=== PATIENT | female | born 1960 | race Caucasian/White ===

== ENCOUNTER 2024-12-22 08:38 | Day surgery (SDC) | payer OTHER ==
[2024-12-21 11:48] VITALS: BMI 23.1
[2024-12-22 11:54] VITALS: TEMP 98
[2024-12-22 12:17] VITALS: RESP 17
[2024-12-22 13:31] VITALS: BP 126/58; PULSE 85
== END 2024-12-22 13:32 | disposition home or self-care (01) ==
LOC: JASU-ENDO 08:38
PROVIDERS: ATTEND Internal Medicine Gastroenterology
PROC: 0DJD8ZZ Inspection of Lower Intestinal Tract, Via Natural or Artificial Opening Endoscopic (ICD-10-PCS; principal; 2024-12-22 11:00)
DX: Z12.11 Encounter for screening for malignant neoplasm of colon (principal); K57.30 Diverticulosis of large intestine without perforation or abscess without bleeding; K64.8 Other hemorrhoids; K63.89 Other specified diseases of intestine; Z80.0 Family history of malignant neoplasm of digestive organs

== ENCOUNTER 2025-05-14 17:48 | Inpatient (IN) | payer OTHER ==
[2025-05-14 19:42] LABS: ABSOLUTE IMMATURE GRANULOCYTES 0.02 x10^3/uL (0.0-0.031); BASOPHILS # 0.03 x10^3/uL (0.01-0.08); EOSINOPHIL % 7.2 % (0.7-5.8); EOSINOPHILS # 0.54 x10^3/uL (0.04-0.36); MCHC 27.1 g/dl (32.2-35.5); MEAN CELL VOLUME 68.3 fl (79.4-94.8); MEAN PLT VOLUME 9.5 fl (9.4-12.3); MONOCYTE # 0.87 x10^3/uL (0.24-0.86); MONOCYTE % 11.5 % (4.7-12.5); RDW 17.9 % (12.4-16.4)
[2025-05-14 20:00] LABS: GLUCOSE,RANDOM 101.0 mg/dL (74-106)
[2025-05-14 20:01] LABS: TOT PROT 7.1 g/dl (6.4-8.2)
[2025-05-14 20:02] LABS: CO2 20.0 mmol/L (21-32)
[2025-05-14 20:03] LABS: ALK PHOS 76.0 U/L (40-150)
[2025-05-14 20:05] LABS: IRON SERUM 13.0 ug/dL (50-175)
[2025-05-14 20:06] LABS: CREATININE 0.65 mg/dL (0.55-1.3); SGOT/AST 28.0 U/L (5-34); SGPT/ALT 18.0 U/L (0-55)
[2025-05-14 20:29] LABS: HCV DIAGNOSTIC IN-HOUSE W/RFLX NON-REACTIVE (NONREACTIVE); HIV INTERPRETATION NEGATIVE (NEGATIVE)
[2025-05-14 21:46] LABS: LDH 319.0 U/L (84-246)
[2025-05-15 00:01] VITALS: BMI 24.4
[2025-05-15] MEDS: ACETAMINOPHEN 325 MG TABLET (FP) PO PRN (01:25)
[2025-05-15] MEDS: ZOLPIDEM TARTRATE 5 MG TABLET PO PRN (01:25)
[2025-05-15] MEDS: LIDOCAINE 4% PATCH TP ONE (01:25)
[2025-05-15 06:45] LABS: ABSOLUTE IMMATURE GRANULOCYTES 0.04 x10^3/uL (0.0-0.031); BASOPHILS # 0.08 x10^3/uL (0.01-0.08); EOSINOPHIL % 8.5 % (0.7-5.8); EOSINOPHILS # 0.62 x10^3/uL (0.04-0.36); MCHC 29.6 g/dl (32.2-35.5); MEAN PLT VOLUME 9.7 fl (9.4-12.3); MONOCYTE # 1.13 x10^3/uL (0.24-0.86); MONOCYTE % 15.4 % (4.7-12.5); RDW 21.6 % (12.4-16.4)
[2025-05-15 06:53] LABS: MEAN CELL VOLUME 75.3 fl (79.4-94.8)
[2025-05-15 07:40] LABS: GLUCOSE,RANDOM 96.0 mg/dL (74-106); TOT PROT 6.1 g/dl (6.4-8.2)
[2025-05-15 07:41] LABS: CO2 20.0 mmol/L (21-32)
[2025-05-15 07:43] LABS: ALK PHOS 70.0 U/L (40-150)
[2025-05-15 07:45] LABS: SGPT/ALT 18.0 U/L (0-55)
[2025-05-15 07:46] LABS: CREATININE 0.62 mg/dL (0.55-1.3); SGOT/AST 30.0 U/L (5-34)
[2025-05-15] MEDS: FUROSEMIDE 40 MG/4 ML INJECTABLE VIAL IVPUSH ONE (09:20)
[2025-05-15] MEDS: LORATADINE 10 MG TABLET PO ONE (12:18)
[2025-05-15] MEDS: IRON SUCROSE INJECTION 100 MG in SODIUM CHLORIDE 95 ML IVPB ONE (14:49)
[2025-05-15] MEDS: IRON SUCROSE INJECTION 200 MG in SODIUM CHLORIDE 100 ML IVPB ONE (14:51)
[2025-05-15] MEDS: PANTOPRAZOLE 40 MG TABLET PO SCH (16:47)
[2025-05-15 17:06] LABS: MCHC 31.5 g/dl (32.2-35.5); MEAN CELL VOLUME 74.8 fl (79.4-94.8); MEAN PLT VOLUME 9.6 fl (9.4-12.3); RDW 20.2 % (12.4-16.4)
[2025-05-15 17:49] VITALS: BP 155/72; PULSE 88; RESP 88; TEMP 98.1
[2025-05-15] MEDS ORDERED: LIDOCAINE PATCH REMOVAL MC SCH (22:00)
== END 2025-05-15 19:10 | disposition home or self-care (01) | DRG 812 ==
LOC: JER 17:48 → JERBED 19:57 → OBSVTOIN 20:34 → J4W 22:57
PROVIDERS: ADMIT Student in an Organized Health Care Education/Training Program; ATTEND Internal Medicine
PROC: 30233N1 Transfusion of Nonautologous Red Blood Cells into Peripheral Vein, Percutaneous Approach (ICD-10-PCS; principal; 2025-05-14)
DX: D50.9 Iron deficiency anemia, unspecified (principal); M06.9 Rheumatoid arthritis, unspecified; I83.90 Asymptomatic varicose veins of unspecified lower extremity; G47.00 Insomnia, unspecified; K64.8 Other hemorrhoids
CPT/HCPCS: 36415; 36430; 71045-TC-FY; 80053; 82728; 83010; 83540; 83550; 83615; 83735; 84100; 84466; 84484; 85025; 85027; 86803; 86850; 86900; 86901; 86922; 87389; 87637-QW; 87651; 93005; 93010; 93970-TC; 99285-25; G0378; J1756; P9058